=== PATIENT | female | born 1930 | race Caucasian/White ===

== ENCOUNTER 2018-01-07 13:42 | Emergency (ER) | payer MEDICARE, OTHER ==
--- NOTE | 2018-01-07 15:17 | EDM.PDOC ---
ED HPI GENERAL MEDICAL PROBLEM - General Stated Complaint: WEAKNESS Time Seen by Provider: 01/07/18 13:56 Source of Information: Reports: Patient, Family, RN Notes Reviewed - History of Present Illness INITIAL COMMENTS - FREE TEXT/NARRATIVE: The patient is an 87-year-old resident of [facility] was found on the floor at 9:30 this morning after an unwitnessed fall. She does have any injury she has no weakness in the left side is appropriate pupils were equal no facial droop. And at 1305 was incontinent of urine had 2 stools today. She normally uses a walker. He got up and fell on the floor. On December, patient, one half days before her granddaughter's wedding, experienced left- sided weakness" was transferred to [facility] she was hospitalized for 15 days and had 6 days of rehabilitation . She was admitted to [facility]. Today she was at lunch significant medical history dyslipidemia, hypothyroidism, hypertension, insomnia, GERD, depression, chronic urine medication chronic urine medication use- Hiprex one tablet daily. a This afternoon patient was noted to have onset of left upper extremity and lower extremity weakness and was transferred to the emergency room for further evaluation. For her stroke she looked insured and oriented only with patient's son so she was noted to have fallen this morning. She was up and establish her own and went to eat lunch. Patient is attended by her daughter notes she has left arm weakness and leg weakness. There is no change in her speech. 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 (see below) (na) - Related Data Allergies Allergy/AdvReac Type Severity Reaction Status Date / Time ciprofloxacin [From Cipro] Allergy Cannot Verified 01/07/18 14:03 Remember clarithromycin Allergy Cannot Verified 01/07/18 14:03 Remember nitrofurantoin Allergy Cannot Verified 01/07/18 14:03 [From Macrodantin] Remember petrolatum,white Allergy Cannot Verified 01/07/18 14:03 [From A and D Barrier] Remember sulfamethoxazole Allergy Cannot Verified 01/07/18 14:03 [From Bactrim] Remember trimethoprim [From Bactrim] Allergy Cannot Verified 01/07/18 14:03 Remember Home Meds: Home Meds Acetaminophen [Tylenol] 650 mg PO Q4HR PRN 01/07/18 [History] Aspirin [Aspirin EC] 81 mg PO DAILY 01/07/18 [History] Bisacodyl [Dulcolax] 10 mg RC DAILY PRN 01/07/18 [History] Cyanocobalamin/Folic AC/Vit B6 [Folbee] 1 tab PO DAILY 01/07/18 [History] Enalapril Maleate 20 mg PO BID 01/07/18 [History] Eucalyptus/Menthol [Cough Drops] 1 each MM ASDIRECTED PRN 01/07/18 [History] Folic Acid/Vit B Complex and C [Dialyvite] 1 tab PO DAILY 01/07/18 [History] Levothyroxine Sodium [Levo-T] 37.5 mcg PO ACBREAKFAST 01/07/18 [History] Loperamide HCl [Loperamide] 2 mg PO ASDIRECTED PRN 01/07/18 [History] Magnesium Chloride [Mag-64] 64 mg PO DAILY 01/07/18 [History] Magnesium Hydroxide [Milk of Magnesia] 400 mg PO ASDIRECTED PRN 01/07/18 [ History] Methenamine Hippurate [Hiprex] 1 gm PO DAILY 01/07/18 [History] Multivitamin [Multi-Vitamin Daily] 1 tab PO DAILY 01/07/18 [History] Omeprazole 40 mg PO DAILY 01/07/18 [History] Propranolol [Inderal] 40 mg PO BID 01/07/18 [History] QUEtiapine Fumarate [Seroquel] 6.25 mg PO BEDTIME 01/07/18 [History] Sertraline HCl 25 mg PO DAILY 01/07/18 [History] atorvaSTATin Calcium [Atorvastatin Calcium] 40 mg PO BEDTIME 01/07/18 [History] levETIRAcetam [Keppra] 500 mg PO BID 01/07/18 [History] ED ROS GENERAL - Review of Systems Review Of Systems: See Below Constitutional: Reports: No Symptoms HEENT: Reports: No Symptoms Respiratory: Reports: No Symptoms Cardiovascular: Reports: No Symptoms Endocrine: Reports: No Symptoms GI/Abdominal: Reports: No Symptoms : Reports: No Symptoms Musculoskeletal: Reports: No Symptoms, Other (is ambulatory but fell today early this morning without injury) Neurological: Reports: No Symptoms Psychiatric: Reports: No Symptoms Hematologic/Lymphatic: Reports: No Symptoms Immunologic: Reports: No Symptoms ED EXAM, NEURO - Physical Exam Exam: See Below Text/Narrative:: Patient's alert has not complained of any pain numbness weakness or left side of her upper extremity and lower extremity and she is attended by her daughter. Exam Limited By: No Limitations General Appearance: Alert, WD/WN, No Apparent Distress Eye Exam: Bilateral Eye: Normal Inspection Ears: Normal External Exam Nose: Normal Inspection Throat/Mouth: Normal Inspection Head Exam: Atraumatic Neck: Normal Inspection, Other (No bruits) Respiratory/Chest: No Respiratory Distress Cardiovascular: Normal Peripheral Pulses GI/Abdominal: Normal Bowel Sounds (Female) Exam: Deferred Rectal (Female) Exam: Deferred Neurological: Alert, Normal Mood/Affect, Normal Dorsiflexion, CN II-XII Intact, Oriented x 3, Abnormal Gait, Abnormal Finger to Nose, Abnormal Motor, Straight Leg Raise (L), Straight Leg Raise (R), Difficulty Walking DTR: 0: Achilles (R), Achilles (L), 1+: Bicep (R), Patella (R), 2+: Bicep (L), Patella (L) Back Exam: Normal Inspection, Full Range of Motion Extremities: Normal Inspection, Normal Range of Motion, Non-Tender, No Pedal Edema, Normal Capillary Refill Psychiatric: Normal Affect, Normal Mood Skin Exam: Warm, Dry, Intact, Normal Color EKG INTERPRETATION EKG Date: 01/07/18 Time: 14:30 Rhythm: NSR Rate (Beats/Min): 71 Western: Normal P-Wave: Present QRS: Normal ST-T: Normal QT: Normal Comparison: NA - No Prior EKG (Normal EKG) Course - Orders/Labs/Meds Orders: Active Orders 24 hr Category Date Time Status Head wo Cont [CT] Stat Exams 01/07/18 14:01 Taken EKG 12 Lead [EK] Routine Ther 01/07/18 14:08 Ordered Labs: Laboratory Tests 01/07/18 01/07/18 01/07/18 Range/Units 13:50 13:50 13:50 WBC 12.9 H (4.5-12.0) X10-3/uL RBC 3.97 (3.23-5.20) x10(6)uL Hgb 11.7 (11.5-15.5) g/dL Hct 34.8 (30.0-51.3) % MCV 87.7 (80-96) fL MCH 29.4 (27.7-33.6) pg MCHC 33.5 (32.2-35.4) g/dL RDW 13.4 (11.5-15.5) % Plt Count 384 H (125-369) X10(3)uL MPV 8.3 (7.4-10.4) fL Add Manual Diff Yes Neutrophils % (Manual) 78 (46-82) % Lymphocytes % (Manual) 14 (13-37) % Monocytes % (Manual) 7 (4-12) % Eosinophils % (Manual) 1 (0-5) % PT 9.7 (8.7-11.1) INR 1.00 (0.89-1.13) Sodium 138 (135-145) mmol/L Potassium 4.0 (3.5-5.3) mmol/L Chloride 102 (100-110) mmol/L Carbon Dioxide 28 (21-32) mmol/L BUN 36 H (7-18) mg/dL Creatinine 1.3 H (0.55-1.02) mg/dL Est Cr Clr Drug Dosing TNP Estimated GFR (MDRD) 39 L (>60) BUN/Creatinine Ratio 27.7 H (9-20) Glucose 104 (80-116) mg/dL Calcium 9.3 (8.6-10.2) mg/dL Total Bilirubin 0.5 (0.1-1.3) mg/dL AST 99 H (5-25) IU/L ALT 98 H (12-36) U/L Alkaline Phosphatase 158 H (56-112) IU/L Troponin I (<0.017-0.056) ng/mL Total Protein 7.7 (6.0-8.0) g/dL Albumin 2.5 L (2.9-4.5) g/dL Globulin 5.2 g/dL Albumin/Globulin Ratio 0.5 //18 Range/Units 13:50 WBC (4.5-12.0) X10-3/uL RBC (3.23-5.20) x10(6)uL Hgb (11.5-15.5) g/dL Hct (30.0-51.3) % MCV (80-96) fL MCH (27.7-33.6) pg MCHC (32.2-35.4) g/dL RDW (11.5-15.5) % Plt Count (125-369) X10(3)uL MPV (7.4-10.4) fL Add Manual Diff Neutrophils % (Manual) (46-82) % Lymphocytes % (Manual) (13-37) % Monocytes % (Manual) (4-12) % Eosinophils % (Manual) (0-5) % PT (8.7-11.1) INR (0.89-1.13) Sodium (135-145) mmol/L Potassium (3.5-5.3) mmol/L Chloride (100-110) mmol/L Carbon Dioxide (21-32) mmol/L BUN (7-18) mg/dL Creatinine (0.55-1.02) mg/dL Est Cr Clr Drug Dosing Estimated GFR (MDRD) (>60) BUN/Creatinine Ratio (9-20) Glucose (80-116) mg/dL Calcium (8.6-10.2) mg/dL Total Bilirubin (0.1-1.3) mg/dL AST (5-25) IU/L ALT (12-36) U/L Alkaline Phosphatase (56-112) IU/L Troponin I < 0.017 L (<0.017-0.056) ng/mL Total Protein (6.0-8.0) g/dL Albumin (2.9-4.5) g/dL Globulin g/dL Albumin/Globulin Ratio - Radiology Interpretation CT Results Date: 01/07/18 (No acute findings. No sign of acute CVA or bleed. Nonspecific white better disease typical of chronic microvascular disease.) - Re-Assessments/Exams Free Text/Narrative Re-Assessment/Exam: 01/07/18 15:26 reassessment patient no longer has left-sided paralysis she is able to perform active resistance with her left upper and lower extremity. 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 No pronator drift, no dysmetria. All her(weakness and left side has resolved. Departure - Departure Time of Disposition: 13:00 (All of her left-sided stroke symptoms.) Disposition: DC/Tfer to [facility] Clinical Impression: TIA (transient ischemic attack) - Discharge Information *PRESCRIPTION DRUG MONITORING PROGRAM REVIEWED*: Not Applicable *COPY OF PRESCRIPTION DRUG MONITORING REPORT IN PATIENT MENA: Not Applicable Referrals: Onofre Costa MD [Primary Care Provider] - Forms: ED Department Discharge Additional Instructions: At 1320 patient's left-sided hemiparesis has resolved. She no longer has dysmetria, pronator drift, active left-sided weakness. She is able to move her left upper and lower extremities symmetrically against active resistance. Her gait is improved. Assessment: TIA with complete resolution of symptoms I discussed with [facility]. Patient will be returning to [facility]. No change in her orders. No longer have the hyperreflexia on the left side nor does she have an abnormal Babinski reflux. - My Orders Last 24 Hours: My Active Orders 01/07/18 14:01 Head wo Cont [CT] Stat 01/07/18 14:08 EKG 12 Lead [EK] Routine - Assessment/Plan Last 24 Hours: My Active Orders 01/07/18 14:01 Head wo Cont [CT] Stat 01/07/18 14:08 EKG 12 Lead [EK] Routine
== END 2018-01-07 15:42 | disposition home or self-care (01) ==
LOC: FB.ED 13:42
DX: G45.9 Transient cerebral ischemic attack, unspecified (principal); Z88.1 Allergy status to other antibiotic agents; Z88.8 Allergy status to other drugs, medicaments and biological substances; Z88.2 Allergy status to sulfonamides; Z79.899 Other long term (current) drug therapy
CPT/HCPCS: 36415; 70450; 80053; 84484; 85025; 85610; 93005; 99285